=== PATIENT | female | born 1990 | race Two or more races ===

== ENCOUNTER 2020-12-24 17:07 | Emergency (ER) | payer SELFPAY ==
--- NOTE | 2020-12-24 19:24 | EDM.PDOC ---
ED HPI GENERAL MEDICAL PROBLEM - General Chief Complaint: TRANSPORTATION MAINTENANCE WORKER Problem Stated Complaint: PELVIC PAIN Time Seen by Provider: 12/24/20 17:17 Source of Information: Reports: Patient, RN Notes Reviewed History Limitations: Reports: No Limitations - History of Present Illness INITIAL COMMENTS - FREE TEXT/NARRATIVE: Patient is a 30-year-old female presenting to the emergency department with complaints of intermittent pelvic pain and burning with urination for the last 2 weeks. She reports that a friend had told her today that her ex was diagnosed with gonorrhea so she is concerned that she may have this. She also reports that she had a brownish discharge with a "fishy odor "prior to starting her period. She started having vaginal bleeding yesterday. She would also like a test completed as she injected methamphetamine 3 weeks ago and states that when she uses methamphetamine she sometimes gets irregular vaginal bleeding not related to her period. Denies any fever or chills. She has no back pain. She is having no pain at this time. - Related Data Allergies Allergy/AdvReac Type Severity Reaction Status Date / Time No Known Allergies Allergy Verified 12/24/20 17:17 Home Meds: Home Meds Doxycycline [Doxycycline Hyclate] 100 mg PO DAILY 12/24/20 [History] buPROPion [Wellbutrin] 300 mg PO BID 12/24/20 [History] Past Medical History - Past Health History Medical/Surgical History: Denies Medical/Surgical History Psychiatric History: Reports: Addiction - Infectious Disease History Infectious Disease History: Reports: Novel Coronavirus Other Infectious Disease History: COVID may 2020. COVID vaccine October 2020 Social & Family History - Tobacco Use Tobacco Use Status *Q: Current Every Day Tobacco User Years of Tobacco use: 10 Packs/Tins Daily: 0.5 - Recreational Drug Use Recreational Drug Use: Yes Recreational Drug Type: Reports: Methamphetamine Recreational Drug Use Frequency: Daily ED ROS GENERAL - Review of Systems Review Of Systems: Comprehensive ROS is negative, except as noted in HPI. ED EXAM, RENAL/ - Physical Exam Exam: See Below General Appearance: Alert, WD/WN, No Apparent Distress Respiratory/Chest: No Respiratory Distress, Lungs Clear, Normal Breath Sounds, No Accessory Muscle Use, Chest Non-Tender Cardiovascular: Normal Peripheral Pulses, Regular Rate, Rhythm, No Edema, No Gal lop, No JVD, No Murmur, No Rub GI/Abdominal: Normal Bowel Sounds, Soft, Non-Tender, No Organomegaly, No Distention, No Abnormal Bruit, No Mass Neurological: Alert, Oriented, CN II-XII Intact, Normal Cognition, Normal Gait, Normal Reflexes, No Motor/Sensory Deficits Psychiatric: Normal Affect, Normal Mood Skin Exam: Warm, Dry, Intact, Normal Color, No Rash Course - Vital Signs Last Recorded V/S: Last Vital Signs Temp 97.8 F 12/24/20 17:15 Pulse 79 12/24/20 17:15 Resp 18 12/24/20 17:15 BP 127/81 12/24/20 17:15 Pulse Ox 97 12/24/20 17:15 - Orders/Labs/Meds Labs: Laboratory Tests 12/24/20 12/24/20 12/24/20 Range/Units 17:50 17:50 17:50 Urine Color Redan H (Yellow) Urine Appearance Cloudy H (Clear) Urine pH 6.0 (5.0-8.0) Ur Specific [place] 1.025 (1.005-1.030) Urine Protein 1+ H (Negative) Urine Glucose (UA) Negative (Negative) Urine Ketones Negative (Negative) Urine Occult Blood 3+ H (Negative) Urine Nitrite Negative (Negative) Urine Bilirubin Negative (Negative) Urine Urobilinogen 0.2 (0.2-1.0) Ur Leukocyte Esterase Trace H (Negative) Urine RBC Too numerous to cnt H (0-5) /hpf Urine WBC 0-5 (0-5) /hpf Ur Squamous Epith Cells 0-5 (0-5) /hpf Urine Bacteria Rare (FEW) /hpf Urine Mucus Not seen (FEW) /hpf Urine HCG, Qual Negative (NEGATIVE) C trachomatis DNA (PCR) Not detected N gonorrhoeae DNA (PCR) Not detected - Re-Assessments/Exams Free Text/Narrative Re-Assessment/Exam: Patient is a 30-year-old female presenting to the emergency department with concerns that she could positive gonorrhea. She does report a brownish discharge with fishy odor prior to starting her.. Unfortunate since she is on her period we are able to complete a wet prep as the blood would contaminate the sample. For today's purposes, I have ordered urinalysis, urine GC chlamydia, and a urine test. 12/24/20 19:32 I have been notified by nursing staff that patient has eloped the ED. She did not want to wait for her results. She had left before I was able to talk with her. Departure - Departure Time of Disposition: 19:32 Disposition: Eloped 07 Clinical Impression: Vaginal discharge - Discharge Information Referrals: PCP,None [Primary Care Provider] - Forms: ED Department Discharge Sepsis Event Note (ED) - Evaluation Sepsis Screening Result: No Definite Risk
[2020-12-24 19:40] LABS: C. TRACHOMATIS BY PCR NOT DETECTED; N. GONORRHOEAE BY PCR NOT DETECTED
== END 2020-12-24 19:32 | disposition left against medical advice (07) ==
LOC: JD.ED 17:07
DX: N89.8 Other specified noninflammatory disorders of vagina (principal); Z72.0 Tobacco use; Z86.16 Personal history of COVID-19
CPT/HCPCS: 81001; 81025; 87491; 87591; 99282; 99284

== ENCOUNTER 2021-01-05 23:19 | Emergency (ER) | payer SELFPAY ==
--- NOTE | 2021-01-05 23:59 | EDM.PDOC ---
ED HPI GENERAL MEDICAL PROBLEM - General Chief Complaint: Genitourinary Problem Stated Complaint: BACK AND PELVIC PAIN Time Seen by Provider: 01/05/21 23:58 Source of Information: Reports: Patient, RN Notes Reviewed - History of Present Illness INITIAL COMMENTS - FREE TEXT/NARRATIVE: 30 yr old female has had some mild pelvic and back discomfort for about 1-2 wks. Mild voiding dyruria and frequency. No fever, chills, nausea or vomiting. She has found out the her "ex" has been stating he has gonorrhea and feels she needs to be checked for that. Lower Back Pain Score (Numeric/FACES): 7 - Related Data Allergies Allergy/AdvReac Type Severity Reaction Status Date / Time No Known Allergies Allergy Verified 12/24/20 17:17 Home Meds: Home Meds Doxycycline [Doxycycline Hyclate] 100 mg PO DAILY 12/24/20 [History] buPROPion [Wellbutrin] 150 mg PO BID 12/24/20 [History] Nitrofurantoin Monohyd/M-Cryst [Macrobid 100 mg Capsule] 100 mg PO BID #10 capsule 01/06/21 [Rx] Past Medical History - Past Health History Medical/Surgical History: Denies Medical/Surgical History Genitourinary History: Reports: STD CLINICAL REHABILITATION LIAISON History: Reports: Psychiatric History: Reports: Addiction Hematologic History: Reports: Sickle Cell Anemia Other Dermatologic History: acne - Infectious Disease History Infectious Disease History: Reports: Novel Coronavirus Other Infectious Disease History: COVID may 2020. COVID vaccine October 2020 - Past Surgical History Female Surgical History: Reports: D&C Social & Family History - Tobacco Use Tobacco Use Status *Q: Current Every Day Tobacco User Years of Tobacco use: 20 Packs/Tins Daily: 1 - Recreational Drug Use Recreational Drug Use: Yes Drug Use in Last 12 Months: Yes Recreational Drug Type: Reports: Marijuana/Hashish, Methamphetamine ED ROS GENERAL - Review of Systems Review Of Systems: See Below Constitutional: Denies: Fever, Chills HEENT: Reports: No Symptoms Respiratory: Denies: Shortness of Breath Cardiovascular: Denies: Chest Pain GI/Abdominal: Reports: Abdominal Pain (mild pelvic off and on for 2 wks). Denies: Nausea, Vomiting : Reports: Dysuria, Frequency. Denies: Urgency Musculoskeletal: Reports: Back Pain Skin: Denies: Rash ED EXAM, RENAL/ - Physical Exam Exam: See Below General Appearance: Alert, No Apparent Distress Head: Atraumatic Neck: Supple Respiratory/Chest: No Respiratory Distress, Lungs Clear Cardiovascular: Regular Rate, Rhythm GI/Abdominal: Soft, Non-Tender. No: Guarding Back Exam: No: CVA Tenderness (L), CVA Tenderness (R) Extremities: Normal Inspection Neurological: Alert, Oriented, No Motor/Sensory Deficits Skin Exam: Warm, Dry, Normal Color, No Rash Course - Vital Signs Last Recorded V/S: Last Vital Signs Temp 98.5 F 01/05/21 23:29 Pulse 106 H 01/05/21 23:29 Resp 14 01/05/21 23:29 BP 128/91 H 01/05/21 23:29 Pulse Ox 97 01/05/21 23:29 - Orders/Labs/Meds Labs: Laboratory Tests 01/05/21 01/05/21 01/06/21 Range/Units 23:35 23:35 00:04 Urine Color Yellow (Yellow) Urine Appearance Clear (Clear) Urine pH 5.5 (5.0-8.0) Ur Specific [place] 1.025 (1.005-1.030) Urine Protein Negative (Negative) Urine Glucose (UA) Negative (Negative) Urine Ketones Negative (Negative) Urine Occult Blood Negative (Negative) Urine Nitrite Negative (Negative) Urine Bilirubin Negative (Negative) Urine Urobilinogen 0.2 (0.2-1.0) Ur Leukocyte Esterase Trace H (Negative) U Hyaline Cast (Auto) 5-10 H (0-5) /lpf Urine RBC 0-5 (0-5) /hpf Urine WBC 5-10 H (0-5) /hpf Ur Squamous Epith Cells 0-5 (0-5) /hpf Urine Bacteria Few (FEW) /hpf Urine Mucus Few (FEW) /hpf Urine HCG, Qual Negative (NEGATIVE) C trachomatis DNA (PCR) Not detected N gonorrhoeae DNA (PCR) Not detected Meds: Medications Discontinued Medications Generic Name Dose Route Start Last Admin Trade Name Freq PRN Reason Stop Dose Admin Nitrofurantoin Macrocrystals 100 mg 01/06/21 01:47 01/06/21 01:55 Nitrofurantoin Monohydrate/Macrocrystalline 100 Mg Cap PO 01/06/21 01:48 100 mg ONETIME ONE Administration Departure - Departure Time of Disposition: 01:47 Disposition: Home, Self-Care 01 Condition: Fair Clinical Impression: UTI, Urinary tract infectious disease - Discharge Information Prescriptions: Nitrofurantoin Monohyd/M-Cryst [Macrobid 100 mg Capsule] 100 mg PO BID #10 capsule Instructions: Urinary Tract Infection, Adult, [id number] Referrals: PCP,None [Primary Care Provider] - Forms: ED Department Discharge Additional Instructions: Macrobid 100 mg twice daily for 5 days. Drink plenty of water. Prescription has been sent to [facility] located at the [facility]. Follow up clinic as needed if symptoms not resolving as expected. Sepsis Event Note (ED) - Evaluation Sepsis Screening Result: No Definite Risk - Focused Exam Vital Signs: Vital Signs Temp Pulse Resp BP Pulse Ox 01/05/21 23:29 98.5 F 106 H 14 128/91 H 97
[2021-01-06 01:26] LABS: C. TRACHOMATIS BY PCR NOT DETECTED; N. GONORRHOEAE BY PCR NOT DETECTED
[2021-01-06] MEDS ORDERED: Nitrofurantoin Monohydrate/Macrocrystalline 100 MG Cap PO ONE (01:47)
== END 2021-01-06 01:56 | disposition home or self-care (01) ==
LOC: JD.ED 23:19
DX: N39.0 Urinary tract infection, site not specified (principal); Z72.0 Tobacco use; Z86.16 Personal history of COVID-19
CPT/HCPCS: 81001; 81025; 87491; 87591; 99283; 99284; A9270-GY

== ENCOUNTER 2021-11-28 09:03 | Emergency (ER) | payer OTHER | END 2021-11-28 10:49 | disposition home or self-care (01) | LOC: JD.ED 09:03 | DX: R07.89 Other chest pain (principal); Z86.16 Personal history of COVID-19; Z72.0 Tobacco use | CPT/HCPCS: 70450; 70450-26; 71045; 71045-26; 72070; 72070-26; 72100; 72100-26; 99283; 99285-25 ==

== ENCOUNTER 2022-09-14 17:36 | Emergency (ER) | payer OTHER, MEDICAID | END 2022-09-14 18:35 | disposition left against medical advice (07) | LOC: JD.ED 17:36 | DX: Z53.21 Procedure and treatment not carried out due to patient leaving prior to being seen by health care provider (principal) ==

== ENCOUNTER 2022-09-18 22:40 | Emergency (ER) | payer MEDICAID, OTHER | END 2022-09-19 00:20 | disposition home or self-care (01) | LOC: JD.ED 22:40 | DX: S01.511D Laceration without foreign body of lip, subsequent encounter (principal); F17.210 Nicotine dependence, cigarettes, uncomplicated; Z48.02 Encounter for removal of sutures | CPT/HCPCS: 99281; 99282 ==

== ENCOUNTER 2025-04-06 17:28 | Emergency (ER) | payer SELFPAY ==
[2025-04-06 18:06] LABS: BASOPHILS ABSOLUTE AUTO 0.0 K/mm3 (0.0-0.2); BASOPHILS PERCENT AUTO 0.3 % (0.0-1.0); EOSINOPHILS ABSOLUTE AUTO 0.2 K/mm3 (0.0-0.4); EOSINOPHILS PERCENT AUTO 3.1 % (0.0-6.0); IMMATURE GRAN ABSOLUTE AUTO 0.02 K/mm3 (0.00-0.05); IMMATURE GRAN PERCENT AUTO 0.3 % (0.0-0.4); LYMPHOCYTES ABSOLUTE AUTO 1.8 K/mm3 (1.0-4.8); LYMPHOCYTES PERCENT AUTO 24.7 % (24.0-44.0); MEAN PLATELET VOLUME 10.2 fl (9.4-12.3); MONOCYTES ABSOLUTE AUTO 0.5 K/mm3 (0.0-0.8); MONOCYTES PERCENT AUTO 6.7 % (0.0-8.0); NEUTROPHILS ABSOLUTE AUTO 4.6 K/mm3 (1.8-7.7); NEUTROPHILS PERCENT AUTO 64.9 % (41.0-71.0); NRBC ABSOLUTE 0.00 (0.00-0.02); NRBC PERCENT 0.0 % (0.0-0.2); PLATELET COUNT,PLT 223 K/mm3 (150-400); RED BLOOD CELL COUNT 4.31 M/mm3 (4.10-5.30); WHITE BLOOD CELL COUNT,WBC 7.13 K/mm3 (3.9-11.3)
[2025-04-06 18:52] LABS: A/G RATIO 0.7 (1-2); ALANINE AMINOTRANSFERASE,ALT 78.0 U/L (14-59); ASPARTATE AMNIOTRANSFERASE,AST 32.0 U/L (15-37); BILIRUBIN TOTAL 0.5 mg/dL (0.2-1.0); BLOOD UREA NITROGEN,BUN 12.0 mg/dL (7-18); CARBON DIOXIDE,CO2 20.0 mEq/L (21-32); CHLORIDE,CL 105.0 mEq/L (98-107); CREATININE 0.7 mg/dL (0.55-1.02); EST CRCL DRUG DOSING (CG) 124.18 mL/min; ESTIMATED GFR 118.0 mL/min (>60); POTASSIUM,K 3.8 mEq/L (3.5-5.1); PROTEIN TOTAL,TP 7.3 g/dl (6.4-8.2); SODIUM,NA 137.0 mEq/L (136-145)
[2025-04-06 18:54] LABS: GLUCOSE RANDOM 118.0 mg/dL (70-99); HCG QUANTITATIVE 86204.0 mIU/mL
== END 2025-04-06 18:50 | disposition left against medical advice (07) ==
LOC: JD.ED 17:28
DX: O20.9 Hemorrhage in early pregnancy, unspecified (principal); Z79.899 Other long term (current) drug therapy
CPT/HCPCS: 36415; 80053; 84702; 85025; 86900; 86901; 99283; 99284